=== PATIENT | male | born 1960 | race Caucasian/White ===

== ENCOUNTER 2021-04-24 09:43 | Emergency (ER) | payer BC, SELFPAY ==
[2021-04-24 10:10] VITALS: BP 132/81; PULSE 75; RESP 15; TEMP 36.4; O2SAT 95; BMI 23.7
--- NOTE | 2021-04-24 10:14 | XR_ITS ---
WS: [id number] Exam: XR finger RT min 2V 68595 Date/Time of Exam: 04/24/2021 10:14 AM Reason For Exam: thumb; trauma/lac distally The thumb is targeted for radiographic evaluation. No fracture or dislocation. Laceration noted at the distal thumb. 3 mm metallic foreign body identifi ed near the MP joint of the third finger. XR/XR finger RT min 2V 31916 IMPRESSION: 1. No bony injury. 2. Soft tissue laceration of the distal thumb.
--- NOTE | 2021-04-24 10:14 | W.ED.UPPEXIN ---
HPI - Extremity Injury (Upper) General: Chief Complaint: Wound/Laceration Stated Complaint: R THUMB LAC Time Seen by Provider: 04/24/21 09:56 Source: patient Mode of arrival: ambulatory Limitations: no limitations History of Present Illness: HPI narrative: Patient is a nice 60-year-old male who presents to ED today with complaints of a right thumb injury. 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 He complains of a laceration to the distal aspect of the finger. Last tetanus was over 10 years ago. complaint: injury to: right and finger Onset (ago): hour(s) Other Extremity Injury: Right: fingers Other injuries: none Place: home Severity: moderate Relieving factors: none Exacerbating factors: other (palpation) Context: direct blow, laceration and crush Associated symptoms: Reports no associated symptoms Review of Systems Musc: Reports: extremity pain (R finger/thumb); Denies: joint pain Skin/Breast: Reports: other (laceration R thumb) Neuro: Denies: numbness in extremities or sensory changes Physical Exam Const: COMMON NORMALS: no acute distress, average body habitus, patient oriented x3, no limitations, healthy appearing, alert and well nourished Extremity: GENERAL: Yes normal exam except as noted LEFT UPPER EXTREMITY: Yes hand & digits (see below) OTHER: patient has a laceration/partial distal tip amputation to the dorsal distal aspect of his R thumb at the end of his nail plate; very minor nail plate damage; no nail bed laceration; distal tip is still anchored on volar surface/palmar pad of finger Neuro: COMMON NORMALS: patient oriented x3, moves all extremities, no focal motor deficits and no sensory deficits noted SENSORIUM/ORIENTATION: Yes alert Skin: NARRATIVE SKIN EXAM: see extremity for pertinent skin findings Procedures Laceration Laceration 1: Site: hand (R thumb) Side (If applicable): right Size (cm): 1.25 Description: flap and other (partial tip amputation) Depth: simple, single layer (distal fat pad) Local Anesthetic: lidocaine 1% (digital block) Amount of anesthesia used (mL): 3.0 Pre-repair: wound explored and irrigated extensively Skin layer closed with: nylon Size (cm): 4-0 Number of sutures: 5 Technique: simple, interrupted Course Vital Signs: Vital signs: Vital Signs Temperature 97.6 F 04/24/21 10:10 Pulse Rate 75 04/24/21 10:10 Respiratory Rate 15 04/24/21 10:10 Blood Pressure 132/81 04/24/21 10:10 Pulse Oximetry 95 04/24/21 10:10 MDM - Extremity Injury (Upper) MDM Narrative: Medical decision making narrative: Wound was copiously irrigated. No bony injury noted on XR. Tetanus updated. Distal tip repaired/sutured as there was still a fairly good amount of tissue still anchoring. Discussed how skin may eventually not be viable and slough off or permanently callus. Wound care discussed at home. Imaging Data^: XR R finger: Radiologist's impression: [address] [address] XRay Report Signed Patient: Clifton Subramanian Unit #: [id number] : 1960 Age/Sex: 60 / M ADM Date: 04/24/21 Loc: ER Room/Bed: Attending Dr: Ordering Provider/Ordering MD: Cat Fry Date of Service: 04/24/21 Procedure(s): XR finger RT min 2V 11703 Accession Number(s): [id number] Report Number: [id number] WS: [id number] Exam: XR finger RT min 2V [id number] Date/Time of Exam: 04/24/2021 10:14 AM Reason For Exam: thumb; trauma/lac distally The thumb is targeted for radiographic evaluation. No fracture or dislocation. Laceration noted at the distal thumb. 3 mm metallic foreign body identified near the MP joint of the third finger. XR/XR finger RT min 2V 61216 IMPRESSION: 1. No bony injury. 2. Soft tissue laceration of the distal thumb. Dictated By: Bryn Hatfield DO Signed By: Bryn Hatfield DO Signed Date/Time: 04/24/21 1046 DD/ 1045 Discharge Plan Discharge Patient Disposition: Home Clinical Impression: Laceration of right thumb with damage to nail Qualifiers: Encounter type: initial encounter Foreign body presence: without foreign body Qualified Code(s): S61.111A - Laceration without foreign body of right thumb with damage to nail, initial encounter Condition: Stable Discharge Orders: Discharge ED (Routine); Ordered 04/24/21 Ordered By: Cat Fry Patient Instructions: Finger Laceration (ED) Activity Restrictions/Additional Instructions: Keep wound/laceration clean with warm soap and water twice daily. Monitor for signs of infection such as redness, swelling, increased pain, or drainage. Please seek medical re-evaluation if these occur. If you received sutures today these will need to be removed (unless you were told by the provider that they are absorbable). The provider should have discussed with you the length of time until removal-7 DAYS. Coding Level of Care Code ED Hardboard Panel Printer for Katia Fwd Exam Expanded Problem Focused
== END 2021-04-24 11:40 | disposition home or self-care (01) ==
PROVIDERS: Emergency Provider Physician Assistant
DX: S61.111A Laceration without foreign body of right thumb with damage to nail, initial encounter (principal); W20.8XXA Other cause of strike by thrown, projected or falling object, initial encounter
CPT/HCPCS: 12001; 73140; 99283